=== PATIENT | female | born 2000 | race Caucasian/White ===

== ENCOUNTER 2023-11-29 19:21 | Emergency (ER) | payer OTHER, MEDICAID ==
[2023-11-29 20:08] LABS: Pregnancy Test - Urine (BHCG) Negative (Negative); Pregu Control Background? CLEAR/WHITE (CLR/WHITE); Pregu Control Bar Appear? YES (CONTROL BAR)
[2023-11-29 20:09] LABS: MONO NEGATIVE CONTROL ZONE White (Negative) (White); MONO POSITIVE CONTROL Pink Line (Positive) (PINK/RED); Mononucleosis NEGATIVE (NEGATIVE)
[2023-11-29 20:35] LABS: SARS-CoV-2 NAA Rapid Test Not Detected (NotDetected)
[2023-11-29 20:37] LABS: Troponin I Less than 0.010 ng/mL (< 0.028)
[2023-11-29] MEDS ORDERED: Ketorolac Tromethamine 30 MG (1 mL) VIAL ONE (20:52)
[2023-11-29] MEDS ORDERED: Amoxicillin/Potassium Clav 875 MG TAB ONE (20:52)
[2023-11-29 20:53] LABS: Bilirubin Negative (Negative); Blood, Urine Negative (Negative); Clarity Clear (Clear); Glucose, Urine (Dipstick) Negative (Negative); Ketone, Urine Negative (Negative); Leukocyte Negative (Negative); Nitrite Negative (Negative); Protein, Urine (Dipstick) Negative (Neg-Trace); Urobilinogen 0.2 mg/dL (Less than 2)
[2023-11-29 20:57] LABS: CAUTI Indications for Culture Fever or rigors; RBC/HPF 0-3 HPF (0-3); WBC/HPF 0-3 HPF (0-3)
[2023-11-29 20:58] LABS: Bacteria/HPF Rare-Few HPF (None Seen); Urine Culture Reflex No No
[2023-11-29] MEDS ORDERED: Ondansetron ODT 4 MG TAB ONE (21:09)
[2023-12-01 05:28] LABS: Chlamydia by PCR, Vaginal Swab Not Detected (NotDetected); GC by PCR, Vaginal Swab Not Detected (NotDetected)
== END 2023-11-29 21:20 | disposition home or self-care (01) ==
LOC: MADERS 19:21
DX: J01.90 Acute sinusitis, unspecified (principal); R10.2 Pelvic and perineal pain; F17.290 Nicotine dependence, other tobacco product, uncomplicated
CPT/HCPCS: 36415; 71046; 81001; 81025; 84484; 86308; 87081; 87430; 87480; 87491; 87510; 87591; 87660; 87804; 93005; 94760; 96372; J1885; Q0162; U0002